=== PATIENT | male | born 1965 | race Two or more races ===

== ENCOUNTER 2017-02-24 12:01 | Emergency (ER) | payer OTHER ==
[2017-02-24 12:25] VITALS: BP 151/88; PULSE 74; TEMP 98; BMI 29.2
--- NOTE | 2017-02-24 14:38 | PDOC ---
History of Present Illness - General History Source: Patient Exam Limitations: No Limitations - History of Present Illness Travel History: No <Nevaeh Perales - Last Filed: 02/24/17 15:28> - General History Source: Patient Exam Limitations: No Limitations - History of Present Illness Initial Comments: 02/24/17 15:17 Pt is a 51 yo M with PMHx of Kidney stones who presents to the ED with L flank pain this morning. Patient reports flank pain is intermittent, radiating to L groin with associated nausea and 1 episode of vomiting (nonbloody, nonbilious). Upon arrival to ED, patients pain has been more frequent. Patient took 2 Aleves with minimal pain relief. Patient notes this pain is similar to his previous episode of Kidney stones and presents to the ED for further evaluation. Patient denies any fever, chills, diarrhea or constipation. Patient denies any heavy lifting, strenuous exercise. Upon evaluation, patients vital signs are within normal limits. Allergies: NKA PCP: Dr. Carrillo <Nancy Simon - Last Filed: 02/24/17 16:09> - General Chief Complaint: Pain, Acute Stated Complaint: PAIN/ BACK, ABD Time Seen by Provider: 02/24/17 14:30 Past History - Past Medical History COPD: No - Suicide/Smoking/Psychosocial Hx Smoking History: Never smoked Hx Alcohol Use: No Drug/Substance Use Hx: No Substance Use Type: None <Nevaeh ePrales - Last Filed: 02/24/17 15:28> <Nancy Simon - Last Filed: 02/24/17 16:09> - Past Medical History Allergies/Adverse Reactions: Allergies Allergy/AdvReac Type Severity Reaction Status Date / Time No Known Allergies Allergy Verified 02/24/17 12:20 Home Medications: Ambulatory Orders Naproxen Sodium [Aleve] 440 mg PO BID 02/24/17 Oxycodone HCl/Acetaminophen [Percocet 5-325 mg Tablet -] 1 - 2 tab PO Q4H PRN # 14 tablet MDD 6 02/24/17 Tamsulosin HCl [Flomax] 0.4 mg PO DAILY #7 cap.er.24h 02/24/17 Review of Systems - Review of Systems Able to Perform ROS?: Yes Comments:: 02/24/17 15:17 CONSTITUTIONAL: Absent: fever, no chills, no fatigue EYES: Absent: visual changes ENT: Absent: ear pain, no sore throat CARDIOVASCULAR: Absent: chest pain, no palpitations RESPIRATORY: Absent: cough, no SOB GI: +nausea +vomitting Absent: abdominal pain, no nausea, no vomiting, no constipation, no diarrhea GENITOURINARY: +L flank pain Absent: dysuria, no frequency, no hematuria MUSCULOSKELETAL: Absent: back pain, no arthralgia, no myalgia SKIN: Absent: rash NEURO: Absent: headache <Nancy Simon - Last Filed: 02/24/17 16:09> *Physical Exam - Vital Signs Last Vital Signs Temp Pulse Resp BP Pulse Ox 98.0 F 74 20 151/88 98 02/24/17 12:20 02/24/17 12:20 02/24/17 12:20 02/24/17 12:20 02/24/17 12:20 - Physical Exam Male Genitalia: positive: normal genitalia, other (no appreciated inguinal hernia bilateral ). negative: normal prostate, testicular tenderness, testicular mass, epididymus tender <Nevaeh Perales - Last Filed: 02/24/17 15:28> - Vital Signs Last Vital Signs Temp Pulse Resp BP Pulse Ox 98.0 F 74 20 151/88 98 02/24/17 12:20 02/24/17 12:20 02/24/17 12:20 02/24/17 12:20 02/24/17 12:20 - Physical Exam Comments: 02/24/17 15:17 GENERAL: Well-appearing, well-nourished. No apparent distress. HEENT: Normocephalic, atraumatic. PERRL, EOM intact. CARDIOVASCULAR: Normal S1, S2. Regular rate and rhythm. PULMONARY: Clear to auscultation bilaterally. ABDOMEN: Soft, non-distended, non-tender. No CVA tenderness. EXTREMITIES: Normal ROM in all four extremities. No gross deformities. SKIN: Warm, dry. No rash NEUROLOGICAL: No focal neurological deficits. <Nancy Simon - Last Filed: 02/24/17 16:09> ED Treatment Course - ADDITIONAL ORDERS Additional order review: Laboratory Results 02/24/17 14:45 Urine Color Yellow Urine Appearance Slcloudy Urine pH 5.0 Ur Specific [place] 1.026 Urine Protein 1+ H Urine Glucose (UA) Negative Urine Ketones Negative Urine Blood Negative Urine Nitrite Negative Urine Bilirubin Negative Urine Urobilinogen Negative <Nancy Simon - Last Filed: 02/24/17 16:09> Progress Note - Progress Note Progress Note: Will check urinalysis for blood or any changes in kidney function, and obtain to rule out kidney stone or hydronephrosis. Patient is currently asymptomatic, denies need for pain medication. States pain has been spasmodic and severe but currently resolved <Nevaeh Perales - Last Filed: 02/24/17 15:28> Medical Decision Making - Medical Decision Making 02/24/17 15:[address] reveals a 3 mm calculus with mild hydronephrosis. Other structures appear normal <Nevaeh Perales - Last Filed: 02/24/17 15:28> - Medical Decision Making 02/24/17 15:17 Nevaeh Perales : The scribe's documentation has been prepared under my direction and personally reviewed by me in its entirety. I confirm that the note above accurately reflects all work, treatment, procedures, and medical decision making performed by me. 02/24/17 16:09 CT SPIRAL RENAL STONE IMPRESSION: 3 mm left UVJ calculus with mild hydronephrosis. Please see above discussion. Reported By: Adi Landrum MD 02/24/17 1531 <Nancy Simon - Last Filed: 02/24/17 16:09> *DC/Admit/Observation/Transfer - Discharge Dispostion Admit: No <Nevaeh Perales - Last Filed: 02/24/17 15:28> - Attestations Scribe Attestion: 02/24/17 15:18 Documentation prepared by Nancy Simon, acting as medical reimbursement specialist for Nevaeh Perales [employer] <Nancy Simon - Last Filed: 02/24/17 16:09> Diagnosis at time of Disposition: Kidney stone on left side - Discharge Dispostion Disposition: HOME Condition at time of disposition: Stable - Prescriptions Prescriptions: Tamsulosin HCl [Flomax] 0.4 mg PO DAILY #7 cap.er.24h Oxycodone HCl/Acetaminophen [Percocet 5-325 mg Tablet -] 1 - 2 tab PO Q4H PRN # 14 tablet MDD 6 PRN Reason: Pain - Referrals Referrals: Bubba Carrillo [Primary Care Provider] - Vickey Castro MD [Staff Physician] - - Patient Instructions Printed Discharge Instructions: DI for Kidney Stones Additional Instructions: Rest, drink lots of fluids: Teas, water, soups [place], carbonated beverages for the bubbles Avoid heavy , spicy or fatty foods until symptoms have resolved Avoid contact with others until fevers and symptoms resolved Lots of handwashing and good hygiene Continue [id number] medications for symptomatic relief Flomax 0.4mg daily for 7 days Tylenol or Motrin for fever and pain May use Percocet one or 2 tablets every 6 hours as needed for severe pain Followup with private physician / urologist in one to 2 days as needed Return to emergency department for worsened symptoms, fevers, dehydration - Post Discharge Activity Forms/Work/School Notes: Back to Work
[2017-02-24 14:55] LABS: URINE APPEARANCE SLCLOUDY; URINE BILIRUBIN NEGATIVE (NEGATIVE); URINE BLOOD NEGATIVE (NEGATIVE); URINE COLOR YELLOW; URINE GLUCOSE (UA) NEGATIVE (NEGATIVE); URINE KETONE NEGATIVE (NEGATIVE); URINE NITRITE NEGATIVE (NEGATIVE); URINE UROBILINOGEN NEGATIVE mg/dL (0.2-1.0)
[2017-02-24 15:01] LABS: URINE PROTEIN 1+ (NEGATIVE)
[2017-02-24 15:19] LABS: URINE MUCUS MODERATE; URINE RBC 1 /hpf (0-3); URINE WBC <1 /hpf (3-5)
[2017-02-24 18:20] LABS: URINE LEUK ESTERASE Negative (NEGATIVE)
== END 2017-02-24 16:37 | disposition home or self-care (01) ==
LOC: JER 12:01 → JERFT 12:01
DX: N13.2 Hydronephrosis with renal and ureteral calculous obstruction (principal); Z87.442 Personal history of urinary calculi
CPT/HCPCS: 74176; 81003; 81015; 99281-25